=== PATIENT | male | born 1945 | race Caucasian/White ===

== ENCOUNTER 2023-02-12 07:00 | Outpatient (CLI) | payer MEDICARE ==
--- NOTE | 2023-02-13 14:07 | XRAY Report ---
PROCEDURE: Chest 2 View X-Ray INDICATIONS: PRODUCTIVE COUGH TECHNIQUE: 2 views of the chest were acquired. COMPARISON: None. FINDINGS: Surgical changes and devices: None. Lungs and pleura: No pleural effusions or pneumothorax. Lungs are clear. Mediastinum: Mediastinal contours appear normal. Heart size is mildly enlarged. Bones and chest wall: No suspicious bony lesions. Overlying soft tissues appear unremarkable. IMPRESSION: No acute pulmonary process. Reviewed by: Brynn Perla MD on 02/13/2023 2:06 PM PDT Approved by: Brynn Perla MD on 02/13/2023 2:06 PM PDT Station ID: [id number]
== END 2023-02-12 23:59 | disposition home or self-care (01) ==
LOC: DI.S 07:00
PROVIDERS: ATTEND Physician Assistant
DX: R05.8 Other specified cough (principal)

== ENCOUNTER 2023-06-07 21:09 | Emergency (ER) | payer MEDICARE ==
[2023-06-07 21:40] LABS: BASOPHILS # (AUTO) 0.1 10^3/uL (0.0-0.1); BASOPHILS % (AUTO) 0.5 %; EOSINOPHILS # (AUTO) 0.1 10^3/uL (0.0-0.7); EOSINOPHILS % (AUTO) 0.4 %; HCT - HEMATOCRIT 50.1 % (42.0-52.0); HGB - HEMOGLOBIN 16.5 g/dL (14.0-18.0); LYMPHOCYTES # (AUTO) 1.3 10^3/uL (1.5-3.5); LYMPHOCYTES % (AUTO) 9.1 %; MEAN CORPUSCULAR HEMOGLOBIN 29.9 pg (27.0-31.0); MEAN CORPUSCULAR HGB CONC 32.9 g/dL (32.0-36.0); MEAN CORPUSCULAR VOLUME 90.9 fL (80.0-94.0); MEAN PLATELET VOLUME 9.5 fL (7.4-11.4); MONOCYTES # (AUTO) 1.2 10^3/uL (0.0-1.0); MONOCYTES % (AUTO) 8.5 %; NEUTROPHILS # (AUTO) 11.4 10^3/uL (1.5-6.6); NEUTROPHILS % (AUTO) 81.1 %; PLT - PLATELET COUNT 214 10^3/uL (130-450); RED BLOOD COUNT 5.51 10^6/uL (4.70-6.10); RED CELL DISTRIBUTION WIDTH 13.8 % (12.0-15.0); WHITE BLOOD COUNT 14.1 x10^3/uL (4.8-10.8)
[2023-06-07 21:45] LABS: PT - PROTHROMBIN TIME 11.1 secs (9.9-12.6)
[2023-06-07 21:52] LABS: PARTIAL THROMBOPLASTIN TIME 30.1 secs (24.9-33.3)
[2023-06-07 21:56] LABS: ALBUMIN 4.6 g/dL (3.2-5.5); ALBUMIN/GLOBULIN RATIO 1.5 (1.0-2.2); ALKALINE PHOSPHATASE 80 IU/L (42-121); ALT ALANINE AMINOTRANSFERASE 28 IU/L (10-60); AST ASPARTATE AMINOTRANSFERASE 32 IU/L (10-42); BILIRUBIN,TOTAL 0.9 mg/dL (0.2-1.0); BUN - BLOOD UREA NITROGEN 18 mg/dL (6-20); CALCIUM 10.1 mg/dL (8.5-10.3); CARBON DIOXIDE - CO2 28 mmol/L (21-32); CHLORIDE 103 mmol/L (101-111); CREATININE 1.5 mg/dL (0.6-1.3); ETOH - ETHANOL < 10.0 mg/dL; GFR - MDRD 45 (>89); GLUCOSE 156 mg/dL (74-104); LIPASE 48 U/L (11-82); POTASSIUM 4.5 mmol/L (3.5-4.5); SODIUM 139 mmol/L (135-145); TOTAL PROTEIN 7.7 g/dL (6.4-8.9)
--- NOTE | 2023-06-07 22:10 | ED Physician Documentation ---
History of Present Illness - Stated complaint Stated Complaint: HEAD INJ - Chief complaint Chief Complaint: Laceration - History obtained from History obtained from: Patient, Family (partner) - Additonal information Additional information: 78-year-old man presents after possible syncopal episode working outside today. Patient had blood to the back of the head and laceration but does not know how it happened. no memory of feeling dizzy or falling. He did drive after this episode to brain picker his partner from pain field. Court Recording Monitor Dr. Arellano at [facility] is currently working him up patient has past medical history of right bundle branch block and depression but no other medical history known. Echo is scheduled for June 16. Not on AC or aspirin. PD PAST MEDICAL HISTORY - Present Medications Home Medications: Ambulatory Orders Medication Instructions Recorded Confirmed ARIPiprazole [Abilify] 5 mg PO QPM 06/07/23 06/07/23 Ascorbic Acid [Vitamin C] 1 tab PO DAILY 06/07/23 06/07/23 Sildenafil Citrate 50 mg PO DAILY 06/07/23 06/07/23 Tamsulosin HCl [Flomax] 0.4 mg PO QPM 06/07/23 06/07/23 buPROPion HCL [Bupropion Xl] 300 mg PO DAILY 06/07/23 06/07/23 - Allergies Allergies/Adverse Reactions: Allergies Allergy/AdvReac Type Severity Reaction Status Date / Time morphine AdvReac Unknown Verified 06/07/23 21:12 - Social History Smoking Status: Never smoker PD ED PE NORMAL - Vitals Vital signs reviewed: Yes - General General: Alert and oriented X 3, No acute distress, Well developed/nourished, Other (elderly appearing) - HEENT HEENT: PERRL, EOMI, Moist mucous membranes, Pharynx benign, Other (T shaped 2.5 cm laceration mid parietal scalp) - Neck Neck: No bony TTP - Cardiac Cardiac: RRR - Respiratory Respiratory: No respiratory distress, Clear bilaterally - Abdomen Abdomen: Non tender, Non distended - Back Back: No spinal TTP - Derm Derm: Normal color, Warm and dry - Extremities Extremities: No deformity - Neuro Neuro: Alert and oriented X 3, paint mixer machine 2-12 intact Eye Opening: Spontaneous Motor: Obeys Commands Verbal: Oriented GCS Score: 15 - Psych Psych: Normal mood, Normal affect Results - Vitals Vitals: Vital Signs - 24 hr 06/07/23 06/07/23 06/07/23 21:12 21:21 22:13 Temperature 36.5 C Heart Rate 87 87 83 Respiratory 16 20 13 Rate Blood Pressure 146/85 H 162/84 H 169/85 H O2 Saturation 95 97 97 06/07/23 22:44 Temperature Heart Rate 90 Respiratory 18 Rate Blood Pressure 154/81 H O2 Saturation 96 Oxygen O2 Source Room air - EKG (time done) 2206 EKG releavant findings:: EKG personally interpreted by author of this note. Relevant findings are: Rate: Rate (enter#) (85) Rhythm: NSR [place]: Normal Intervals: Normal NH, RBBB (old RBBB per patient's mychart), Other (LAFB) QRS: Normal Ischemia: Normal ST segments - Labs Labs: Laboratory Tests 06/07/23 06/07/23 06/07/23 21:33 21:33 21:33 WBC 14.1 H RBC 5.51 Hgb 16.5 Hct 50.1 MCV 90.9 MCH 29.9 MCHC 32.9 RDW 13.8 Plt Count 214 MPV 9.5 Neut # (Auto) 11.4 H Lymph # (Auto) 1.3 L [place] # (Auto) 1.2 H Eos # (Auto) 0.1 Baso # (Auto) 0.1 Absolute Nucleated RBC 0.00 Nucleated RBC % 0.0 PT 11.1 INR 1.0 APTT 30.1 Sodium 139 Potassium 4.5 Chloride 103 Carbon Dioxide 28 Anion Gap 8.0 BUN 18 Creatinine 1.5 H Estimated GFR (MDRD) 45 L Glucose 156 H Calcium 10.1 Total Bilirubin 0.9 AST 32 ALT 28 Alkaline Phosphatase 80 Total Protein 7.7 Albumin 4.6 Globulin 3.1 Albumin/Globulin Ratio 1.5 Lipase 48 Ethyl Alcohol < 10.0 Procedures - Laceration (location) Scalp left Wound type: Irregular Neurovascular status: Sensory intact, Motor intact, Vascular intact Anesthesia: Lidocaine 1% Wound preparation: Irrigated copiously NS, Multiple flaps aligned Skin layer closure: [place] (5) Other: Patient tolerated well, No complications, Neurovascular intact, Dressing applied, Tetanus booster given PD Medical Decision Making - ED course ED course: 78yM presents s/p fall with no memory of the event, found to have lac to scalp. EKG RBBB. CBC, abdominal panel performed with leukocytosis WBC 14.1 and cre 1.5 without previous labs available for comparison. CT head, c spine and CXR ordered. 10:38- Discussed with radiology, patient has right-sided intraparenchymal and subarachnoid hemorrhage. [facility] contacted. [facility] Dr. Yana Ordoñez - she states this appears to be more traumatic. recommend contact with neurosurgery. d/w neurosurgery Dr. Chávez who [facility]. Departure - Departure Disposition: 02 Transfer Acute Care Hosp Clinical Impression: SAH (subarachnoid hemorrhage), Intraparenchymal hematoma of brain, Laceration o f scalp Condition: Serious Forms: PCP List
--- NOTE | 2023-06-07 22:32 | CT Report ---
PROCEDURE: CERVICAL SPINE WO INDICATIONS: Neck trauma, midline tenderness TECHNIQUE: Noncontrast 3 mm thick sections acquired from the skull base to the T4 level. Sagittal and coronal r eformats were then constructed. For radiation dose reduction, the following was used: automated exp osure control, adjustment of mA and/or kV according to patient size. COMPARISON: None. FINDINGS: Image quality: Excellent. Bones: No fractures or dislocations. Visualized superior ribs are intact. Moderate disc height loss at C5-6, C6-7. Mild disc height loss at C7-T1 and remaining cervical levels. Multilevel facet arthro sis. Soft tissues: Prevertebral soft tissues are normal in thickness. No paravertebral hematomas. No ap ical pneumothoraces. IMPRESSION: No acute, displaced fracture or traumatic subluxation. Reviewed by: Ian Norman on 06/07/2023 10:30 PM PDT Approved by: Ian Norman on 06/07/2023 10:30 PM PDT Station ID: [id number]
--- NOTE | 2023-06-07 22:35 | CT Report ---
PROCEDURE: HEAD WO INDICATIONS: Head trauma, abnormal mental status TECHNIQUE: Noncontrast 4.5 mm thick angled axial sections acquired from the foramen magnum to the vertex. For r adiation dose reduction, the following was used: automated exposure control, adjustment of mA and/or kV according to patient size. COMPARISON: None. FINDINGS: Image quality: Excellent. CSF spaces: Basal cisterns are patent. No extra-axial fluid collections. Ventricles are normal in size and shape. Brain: Small volume intraperitoneal and subarachnoid hemorrhage in the right temporal lobe. No midlin e shift. No herniation Skull and face: Scalp contusion overlying the posterior calvarium, without underlying fracture. Sinuses: Visualized sinuses and mastoids are clear. IMPRESSION: Small volume intraperitoneal and subarachnoid hemorrhage in the right temporal lobe. No midline shift or herniation. Findings were discussed with provider at time of dictation. Reviewed by: Ian Norman on 06/07/2023 10:34 PM PDT Approved by: Ian Norman on 06/07/2023 10:34 PM PDT Station ID: [id number]
--- NOTE | 2023-06-07 22:40 | XRAY Report ---
PROCEDURE: Chest 1 View X-Ray INDICATIONS: syncope TECHNIQUE: One view of the chest was acquired. COMPARISON: None. FINDINGS: Surgical changes and devices: None. Lungs and pleura: No pleural effusions or pneumothorax. Lungs are clear. Mediastinum: Mediastinal contours appear normal. Heart size is normal. Bones and chest wall: No suspicious bony lesions. Overlying soft tissues appear unremarkable. IMPRESSION: No acute cardiopulmonary process. Reviewed by: Ian Norman on 06/07/2023 10:38 PM PDT Approved by: Ian Norman on 06/07/2023 10:38 PM PDT Station ID: [id number]
[2023-06-07] MEDS ORDERED: LIDOCAINE 1%-EPI 1:100000 20 ML MDV SUBQ STA (22:56)
[2023-06-07] MEDS ORDERED: BUFFERED LIDOCAINE 10 ML SYRINGE SUBQ STA (23:17)
[2023-06-07] MEDS ORDERED: TETANUS/DIPHTHERIA/PERTUSSIS 0.5 ML SYRINGE IM ONE (23:35)
[2023-06-08 00:19] VITALS: O2SAT 95
[2023-06-08 00:32] LABS: GLUCOSE, URINE (UA) NEGATIVE (NEGATIVE); KETONES,URINE (UA) TRACE mg/dL (NEGATIVE); LEUKOCYTE ESTERASE, URINE NEGATIVE (NEGATIVE); MUDS CUTOFF CONCENTRATIONS CUTOFF CONC BELOW:; NITRITE,URINE NEGATIVE (NEGATIVE); OCCULT BLOOD,URINE NEGATIVE (NEGATIVE); PROTEIN,URINE TRACE mg/dL (NEGATIVE); UROBILINOGEN,URINE 0.2 (NORMAL) E.U./dL (NORMAL)
[2023-06-08 00:38] VITALS: BP 159/85
[2023-06-08 00:46] LABS: BILIRUBIN,URINE NEGATIVE (NEGATIVE); CLARITY,URINE HAZY (CLEAR); ICTOTEST,URINE NEGATIVE; RBC,URINE 0-5 /HPF (0-5); WBC,URINE 0-3 /HPF (0-3)
[2023-06-08 00:47] LABS: BACTERIA,URINE Few /HPF (None Seen); MUCUS,URINE Moderate Strands; SQUAMOUS EPITHELIAL CELL,UR NONE SEEN (<= Few)
[2023-06-08 00:48] LABS: AMPHETAMINE SCREEN,URINE NEGATIVE (NEGATIVE); BARBITURATE SCREEN,UR NEGATIVE (NEGATIVE); BENZODIAZEPINES SCREEN, URINE NEGATIVE (NEGATIVE); COCAINE SCREEN URINE NEGATIVE (NEGATIVE); METHADONE SCREEN, URINE NEGATIVE (NEGATIVE); METHAMPHETAMINES SCREEN, URINE NEGATIVE (NEGATIVE); OPIATE SCREEN, URINE NEGATIVE (NEGATIVE); OXYCODONE SCREEN, URINE NEGATIVE (NEGATIVE); PROPOXYPHENE SCREEN, URINE NEGATIVE (NEGATIVE); THC CANNABINOID SCREEN, URINE NEGATIVE (NEGATIVE); TRICYCLIC ANTIDEPRESSANT,URINE NEGATIVE (NEGATIVE)
== END 2023-06-08 01:02 | disposition short-term general hospital (02) ==
LOC: ED 21:09
DX: S06.6XAA Traumatic subarachnoid hemorrhage with loss of consciousness status unknown, initial encounter (principal); S01.01XA Laceration without foreign body of scalp, initial encounter; W19.XXXA Unspecified fall, initial encounter; Z23 Encounter for immunization
CPT/HCPCS: 12001; 36415; 70450; 71045; 72125; 80053; 80306; 81001; 83690; 85025; 85610; 85730; 86850; 86900; 86901; 90471; 90715; 93005; 99285; G0480; 80320; 81003; 87086

== ENCOUNTER 2023-06-20 11:44 | Emergency (ER) | payer MEDICARE ==
--- NOTE | 2023-06-20 12:13 | ED Physician Documentation ---
PD HPI CHEST PAIN - Stated complaint Stated Complaint: CHEST PX - Chief complaint Chief Complaint: Cardiac - History obtained from History obtained from: Patient, Family - History of Present Illness Timing - onset: Today Timing - onset during: Rest Timing - duration: Seconds Timing - details: Abrupt onset Pain level max: 5 Pain level now: 0 Quality: Sharp Location: Left chest Radiation: No: Jaw, Neck, Back, Abdominal, Left upper extremity, Right upper extremity Improved by: Nothing Worsened by: No: Exertion, Inspiration, Eating, Movement, Palpation, Position Associated symptoms: No: Shortness of air, Diaphoresis, Nausea, Vomiting, Feeling faint / dizzy, General Weakness, Palpitations, Cough - Additional information Additional information: 78-year-old male presents to the emergency department stating that he had a pacemaker implanted at the [facility] 3 days ago. He states that today he had approximately 5 episodes of sharp chest pain that lasted approximately 3 to 5 seconds at a time. He states since that time he has been asymptomatic. Nothing makes it better or worse. No fevers. No chills. No cough. No vomiting. No abdominal pain. No other chest pain. He states he called the cardiology clinic who referred him here for evaluation. Patient cont inues to be asymptomatic here. The pain was on the left side, not near the pacemaker site. Review of Systems Constitutional: denies: Fever, Chills Cardiac: denies: Palpitations, Calf pain Respiratory: denies: Dyspnea, Cough, Wheezing GI: denies: Abdominal Pain, Nausea, Vomiting, Diarrhea : denies: Dysuria, Frequency, Hesitancy Skin: denies: Rash Musculoskeletal: denies: Neck pain, Back pain Neurologic: denies: Headache PD PAST MEDICAL HISTORY - Past Medical History Past Medical History: Yes Endocrine/Autoimmune: Other GI: Other Psych: Depression, Anxiety - Past Surgical History Past Surgical History: Yes General: Other - Present Medications Home Medications: Ambulatory Orders Medication Instructions Recorded Confirmed ARIPiprazole [Abilify] 5 mg PO QPM 06/07/23 06/07/23 Ascorbic Acid [Vitamin C] 1 tab PO DAILY 06/07/23 06/07/23 Sildenafil Citrate 50 mg PO DAILY 06/07/23 06/07/23 Tamsulosin HCl [Flomax] 0.4 mg PO QPM 06/07/23 06/07/23 buPROPion HCL [Bupropion Xl] 300 mg PO DAILY 06/07/23 06/07/23 - Allergies Allergies/Adverse Reactions: Allergies Allergy/AdvReac Type Severity Reaction Status Date / Time morphine AdvReac Unknown Verified 06/20/23 11:48 - Social History Does the pt smoke?: No Smoking Status: Never smoker Does the pt drink ETOH?: Yes Does the pt have substance abuse?: No - Immunizations Immunizations: TDAP >10years/unknown - POLST Patient has POLST: No PD ED PE NORMAL - Vitals Vital signs reviewed: Yes - General General: Alert and oriented X 3, No acute distress - HEENT HEENT: Moist mucous membranes - Neck Neck: Supple, no meningeal sign - Cardiac Cardiac: RRR, Strong equal pulses - Respiratory Respiratory: No respiratory distress, Clear bilaterally - Abdomen Abdomen: Soft, Non tender, Non distended - Back Back: No spinal TTP - Derm Derm: Warm and dry - Extremities Extremities: No edema, No calf tenderness / cord - Neuro Neuro: Alert and oriented X 3 - Psych Psych: Normal mood, Normal affect - Free text exam Free text exam: Incision is clean, dry, intact on the left chest wall. No crepitus. No tenderness over the chest wall. Results - Vitals Vitals: Vital Signs - 24 hr 06/20/23 06/20/23 06/20/23 11:51 11:55 13:55 Temperature 36.7 C 36.7 C Heart Rate 78 78 73 Respiratory 16 16 17 Rate Blood Pressure 122/67 122/67 150/78 H O2 Saturation 94 94 97 06/20/23 14:47 Temperature 36.6 C Heart Rate 70 Respiratory 16 Rate Blood Pressure 130/76 O2 Saturation 98 Oxygen O2 Source Room air - EKG (time done) 1201 EKG releavant findings:: EKG personally interpreted by author of this note. Relevant findings are: Rate: Rate (enter#) (76) Rhythm: NSR [place]: Anterior hemiblock (LAFB) Intervals: RBBB QRS: Normal Ischemia: Normal ST segments - Labs Labs: Laboratory Tests 06/20/23 06/20/23 06/20/23 12:36 12:36 12:36 WBC 8.6 RBC 5.22 Hgb 15.5 Hct 49.2 MCV 94.3 H MCH 29.7 MCHC 31.5 L RDW 13.8 Plt Count 212 MPV 9.4 Neut # (Auto) 5.7 Lymph # (Auto) 1.7 Fisher # (Auto) 0.9 Eos # (Auto) 0.2 Baso # (Auto) 0.1 Absolute Nucleated RBC 0.00 Nucleated RBC % 0.0 Sodium 139 Potassium 4.1 Chloride 105 Carbon Dioxide 28 Anion Gap 6.0 BUN 20 Creatinine 1.1 Estimated GFR (MDRD) 65 L Glucose 116 H Calcium 10.0 Total Bilirubin 0.7 AST 22 ALT 16 Alkaline Phosphatase 92 Troponin I High Sens 50.9 H* B-Natriuretic Peptide 19 Total Protein 7.3 Albumin 4.3 Globulin 3.0 Albumin/Globulin Ratio 1.4 Lipase 61 06/20/23 14:05 WBC RBC Hgb Hct MCV MCH MCHC RDW Plt Count MPV Neut # (Auto) Lymph # (Auto) Fisher # (Auto) Eos # (Auto) Baso # (Auto) Absolute Nucleated RBC Nucleated RBC % Sodium Potassium Chloride Carbon Dioxide Anion Gap BUN Creatinine Estimated GFR (MDRD) Glucose Calcium Total Bilirubin AST ALT Alkaline Phosphatase Troponin I High Sens 53.2 H* B-Natriuretic Peptide Total Protein Albumin Globulin Albumin/Globulin Ratio Lipase - Rads (name of study) cxr Relevant Findings:: Final report received PD Medical Decision Making - ED course Complexity details: reviewed results, re-evaluated patient, considered differential (No ST elevation OK, no aortic dissection, no PE, no tension pneumothorax, no aortic aneurysm), d/w patient, d/w [employer] tre[employer] consultant (Dr. Maldonado, cardiology, [facility]) ED course: Patient is asymptomatic here. No acute findings on chest x-ray, laboratory testing or EKG. No arrhythmias on telemetry. I spoke with Dr. Maldonado, from the [facility], on-call cardiology. He recommends follow-up in the office on Thursday. Mild troponin elevation likely secondary to recent instrumentation rather than true ACS. No evidence of PE, aortic dissection. No evidence of pericardial effusion, tamponade. No evidence of rupture of the ventricular wall. Patient counseled regarding signs and symptoms for which I believe and urgent re-evaluation would be necessary. Patient with good understanding of and agreement to plan and is comfortable going home at this time This document was made in part using voice recognition software. While efforts are made to proofread this document, sound alike and grammatical errors may occur. Departure - Departure Disposition: Home, Self Care Clinical Impression: Atypical chest pain Condition: Good Instructions: ED Chest Pain Atypical Unkn Cause Follow-Up: TRUDI LOWE [Primary Care Provider] - Within 1 week Comments: Please follow-up with the cardiology clinic on Thursday. Please return if you worsen. Your laboratory testing does not show any significant abnormalities today. Your EKG does not show any acute abnormalities either. Your chest x-ray does not show any evidence of perforation or collapsed lung. I spoke with Dr. Maldonado from the [facility] today. Forms: PCP List Discharge Date/Time: 06/20/23 14:46
[2023-06-20 12:41] LABS: BASOPHILS # (AUTO) 0.1 10^3/uL (0.0-0.1); BASOPHILS % (AUTO) 1.2 %; EOSINOPHILS # (AUTO) 0.2 10^3/uL (0.0-0.7); EOSINOPHILS % (AUTO) 2.3 %; HCT - HEMATOCRIT 49.2 % (42.0-52.0); HGB - HEMOGLOBIN 15.5 g/dL (14.0-18.0); LYMPHOCYTES # (AUTO) 1.7 10^3/uL (1.5-3.5); LYMPHOCYTES % (AUTO) 19.9 %; MEAN CORPUSCULAR HEMOGLOBIN 29.7 pg (27.0-31.0); MEAN CORPUSCULAR HGB CONC 31.5 g/dL (32.0-36.0); MEAN CORPUSCULAR VOLUME 94.3 fL (80.0-94.0); MEAN PLATELET VOLUME 9.4 fL (7.4-11.4); MONOCYTES # (AUTO) 0.9 10^3/uL (0.0-1.0); MONOCYTES % (AUTO) 10.4 %; NEUTROPHILS # (AUTO) 5.7 10^3/uL (1.5-6.6); NEUTROPHILS % (AUTO) 66.1 %; PLT - PLATELET COUNT 212 10^3/uL (130-450); RED BLOOD COUNT 5.22 10^6/uL (4.70-6.10); RED CELL DISTRIBUTION WIDTH 13.8 % (12.0-15.0); WHITE BLOOD COUNT 8.6 x10^3/uL (4.8-10.8)
--- NOTE | 2023-06-20 12:41 | XRAY Report ---
PROCEDURE: Chest 1 View X-Ray INDICATIONS: Chest Pain TECHNIQUE: One view of the chest was acquired. COMPARISON: 06/07/2023 FINDINGS: Surgical changes and devices: Dual-chamber left-sided pacemaker Lungs and pleura: Bibasilar dependent atelectasis and/or infiltrate greater on the left vascular con gestion present. Mediastinum: Mediastinal contours appear normal. Heart size is enlarged. Bones and chest wall: No suspicious bony lesions. Overlying soft tissues appear unremarkable. IMPRESSION: Cardiomegaly and mild vascular congestion. Right basilar atelectasis and/or infiltrate greater on the left Reviewed by: Dereck Tan MD on 06/20/2023 11:39 AM ESTELLA Approved by: Dereck Tan MD on 06/20/2023 11:39 AM ESTELLA Station ID: [id number]
[2023-06-20 12:55] LABS: ALBUMIN 4.3 g/dL (3.2-5.5); ALBUMIN/GLOBULIN RATIO 1.4 (1.0-2.2); BILIRUBIN,TOTAL 0.7 mg/dL (0.2-1.0); CREATININE 1.1 mg/dL (0.6-1.3); POTASSIUM 4.1 mmol/L (3.5-4.5); TOTAL PROTEIN 7.3 g/dL (6.4-8.9)
[2023-06-20 13:08] LABS: TROPONIN I HIGH SENSITIVITY 50.9 ng/L (2.3-19.7)
[2023-06-20 14:54] VITALS: BP 130/76; O2SAT 98
== END 2023-06-20 14:46 | disposition home or self-care (01) ==
LOC: ED 11:44
DX: R07.89 Other chest pain (principal); Z95.0 Presence of cardiac pacemaker
CPT/HCPCS: 36415; 80053; 83690; 83880; 84484; 85025; 93005; 99283; 99284